=== PATIENT | male | born 1960 | race Two or more races ===

== ENCOUNTER → 2023-12-04 | Outpatient (CLI) | payer OTHER ==
[~2023-12-04] MED LIST: IOHEXOL 300 MG/ML 100ML BOTTLE IJ ONE
[2023-12-04 10:01] LABS: Chloride 108 mmol/L (98-107); Sodium 141 mmol/L (136-145)
[2023-12-04 10:02] LABS: Anion Gap 3 (5-15); Carbon Dioxide 30 mmol/L (20-30)
[2023-12-04 10:07] LABS: BUN/Creatinine Ratio 13.3 (10.0-20.0); Blood Urea Nitrogen 15 mg/dL (9-23); Glucose 90 mg/dL (74-106)
== END | disposition home or self-care (01) ==
LOC: EEVIPCON 08:00 → XYW 08:55
DX: H54.61 Unqualified visual loss, right eye, normal vision left eye (principal); Z88.8 Allergy status to other drugs, medicaments and biological substances
CPT/HCPCS: 36415; 70482; 80048; Q9967